=== PATIENT | female | born 2000 | race Caucasian/White ===

== ENCOUNTER 2022-08-21 10:30 | Emergency (ER) | payer SELFPAY ==
[~2022-08-21] VITALS: Ht 167.6 cm; Wt 85.3 kg
[2022-08-21 10:46] VITALS: BP 119/43; PULSE 83; RESP 20; TEMP 97.6; O2SAT 99
[2022-08-21 11:40] VITALS: BP 119/62; PULSE 74; RESP 18; TEMP 97; O2SAT 99
[2022-08-21] MEDS ORDERED: METR-435 PO (13:38)
== END 2022-08-21 12:39 | disposition home or self-care (01) ==
LOC: MED 10:30
DX: N76.0 Acute vaginitis (principal); B96.89 Other specified bacterial agents as the cause of diseases classified elsewhere; Z79.2 Long term (current) use of antibiotics
CPT/HCPCS: 81025; 87210; 87491; 99284